=== PATIENT | female | born 1940 | race Caucasian/White ===

== ENCOUNTER → 2022-12-29 12:05 | Outpatient (CLI) | payer OTHER, SELFPAY ==
--- NOTE | 2022-12-29 | DI.RAD.S_ITS ---
Bone Density Report Name: DEVEN WILSON Age: 82 Sex: Female Ethnicity: White Date of : 1940 Indication: postmenopausal; screening for osteoporosis; Referring Provider: SHARMIN MAYERS Study: Bone densitometry was performed. Exam Date: December 29, 2022 Accession number: [id number] Bone Density: Region BMD T-score Z-score Classification AP Spine(L1-L4) 0.928 -1.1 1.7 Osteopenia Femoral Neck (Left) 0.611 -2.1 0.3 Osteopenia Total Hip (Left) 0.708 -1.9 0.3 Osteopenia Femoral Neck (Right) 0.612 -2.1 0.3 Osteopenia Total Hip (Right) 0.732 -1.7 0.5 Osteopenia Total Hip Mean 0.720 -1.8 0.4 Osteopenia World Health Organization criteria for BMD impression classify patients as: Normal (T-score at or above -1.0), Osteopenia (T-score between -1.0 and -2.5), or Osteoporosis (T-score at or below -2.5). 10-year Fracture Risk: FRAX not reported because: Treated for osteoporosis Impression: The patient has low bone mass, based on the Left Femoral Neck T-score. Discussion: It is important to ask patients whether they are taking their medications and to encourage continued and appropriate compliance with their osteoporosis therapies to reduce fracture risk. It is also important to review their risk factors and encourage appropriate calcium and vitamin D intakes, exercise, fall prevention and other lifestyle measures. Follow-Up: Consider a repeat BMD and Vertebral Fracture Assessment (VFA) exam in 2 years or sooner if medically necessary, to reassess this patient's status. Reported by: SIXTO DIAZ M.D. on 12/29/2022 12:43:00 PM.
== END ==
PROVIDERS: Referring Provider Internal Medicine; Visit Provider Internal Medicine
DX: M81.0 Age-related osteoporosis without current pathological fracture (principal); M85.89 Other specified disorders of bone density and structure, multiple sites
CPT/HCPCS: 77080